=== PATIENT | female | born 1995 | race Caucasian/White ===

== ENCOUNTER → 2020-04-08 | Outpatient (CLI) | payer OTHER ==
--- NOTE | 2020-04-09 07:26 | REP ---
There are no prior examinations for comparison. REASON FOR EXAM: Size/date discrepancy. When examinations are compared, images are necessary to review. Limited OB ultrasound was ordered and performed for size/date discrepancy. Multiple ultrasonographic images of the gravid uterus show a single living intrauterine gestation in the cephalic presentation. Doppler interrogation of the heart shows a heart rate of 128 beats per minute. The placenta is posterior fundal and not low lying. The subjective amniotic fluid volume is within normal limits. The calculated amniotic fluid index is 6.6 with an expected range 7.3 to 23.9. The cervix measures 2.5 cm in length and is closed. Evaluation of the maternal adnexal spaces showed no gross abnormalities. Doppler interrogation of the umbilica artery shows an A/B ratio of 2.9. This is slightly above the upper limit of normal for this stage of , which is 2.6. biophysical profile score is 2 for breathing, 2 for movement, 2 for tone, and 2 for amniotic fluid volume, giving a sum total of 8 out of 8. BPD 9.3 cm = 37 weeks 4 days HC 32.5 cm = 36 weeks 5 days AC 32.6 cm = 36 weeks 4 days FL 7.2 cm = 36 weeks 6 days The estimated weight is 3027 grams, which is at the 38th percentile for a 38-week 0-day gestational age. IMPRESSION: Limited OB ultrasound, as described above, showing a single living intrauterine gestation 36 weeks 6 days via composite criteria with an estimated date of delivery of 04/30/2020 by today's exam. Electronically Signed by Varinder Velasquez DO 04/09/2020 09:11 A
== END ==
LOC: M RAD 14:14
PROVIDERS: ATTEND Obstetrics & Gynecology
DX: O26.849 Uterine size-date discrepancy, unspecified trimester (principal)

== ENCOUNTER → 2020-04-13 | Outpatient (CLI) | payer OTHER ==
--- NOTE | 2020-04-13 16:31 | REP ---
Clinical: well-being Comparison: 04/08/2020 . Findings: Examination demonstrates a single live intrauterine in cephalic presentation. motion is identified by technologist. Placenta is noted posterior and grade I I without evidence for placenta previa or abruption. Amniotic fluid volume is normal. Cervix measures 3.8 cm in length and appears closed. No evidence for nuchal cord. Gestational age by LMP 38 weeks 5 days with AJ 04/22/2020 . FHR equals 156 beats per minute. Biophysical profile score: 8/8 Amniotic fluid index: 10.2 cm Impression: Single live advanced gestation in cephalic presentation. Biophysical profile score and amniotic fluid volume are normal. Electronically Signed by Jon Gee MD 04/13/2020 04:24 P
== END ==
LOC: M PLAIMG 15:06
PROVIDERS: ATTEND Obstetrics & Gynecology
DX: Z34.80 Encounter for supervision of other normal pregnancy, unspecified trimester (principal); Z3A.38 38 weeks gestation of pregnancy

== ENCOUNTER 2020-04-16 19:00 | Inpatient (IN) | payer OTHER ==
[~2020-04-16 19:00] MED LIST: MORPHINE 10 MG/ML 1ML VIAL (J2270) ONE; PROMETHAZINE INJ 25 MG/ML VIAL (J2550) ONE
[2020-04-16] MEDS ORDERED: FENTANYL 2MCG/ML ROPIVACAINE 0.2% IN 0.9% NACL 100ML IVBAG ONE (19:52)
[2020-04-17] MEDS ORDERED: IBUPROFEN 800 MG TAB ONE ×2 (04:08→18:07)
[2020-04-17] MEDS ORDERED: DIBUCAINE 1% OINTMENT 30GM ONE (07:53)
[2020-04-17] MEDS ORDERED: ANUSOL HC CREAM 30GM ONE (07:53)
[2020-04-17] MEDS ORDERED: PRENATAL VITAMINS CHEWABLE TABLET ONE (09:34)
[2020-04-17] MEDS ORDERED: OXYTOCIN 30 UNITS IN 0.9% NaCl 500ML IV BAG (J2590) ONE (12:58)
[2020-04-17] MEDS ORDERED: LIDOCAINE 1% SDV 5ML VIAL As Ordered ONE (19:29)
[2020-04-17] MEDS ORDERED: ACETAMINOPHEN SUSP DYE FREE 160 MG/5 ML UDC As Ordered ONE (19:30)
--- NOTE | 2020-06-09 12:16 | IPN ---
DATE: 04/17/2020 This patient and requested circumcision of their male . After discussing risks and benefits of circumcision, the medical and nonmedical indications, the penile block and aftercare, expressed understanding of penile block, aftercare, and bleeding, signed the consent form. All questions were answered. A 20-minute discussion. We await the clearance by the dispatcher bus and trolley. [facility]
== END 2020-04-18 11:00 | disposition home or self-care (01) | DRG 807 ==
LOC: M LDI 19:00
PROVIDERS: ADMIT Obstetrics & Gynecology; ATTEND Obstetrics & Gynecology
PROC: 10E0XZZ Delivery of Products of Conception, External Approach (ICD-10-PCS; principal; 2020-04-17)
PROC: 0KQM0ZZ Repair Perineum Muscle, Open Approach (ICD-10-PCS; 2020-04-17)
DX: O69.2XX0 Labor and delivery complicated by other cord entanglement, with compression, not applicable or unspecified (principal); Z37.0 Single live birth; Z3A.39 39 weeks gestation of pregnancy; O70.1 Second degree perineal laceration during delivery

== ENCOUNTER → 2020-04-16 | Outpatient (CLI) | payer OTHER ==
[2020-06-01 14:41] LABS: HEMATOCRIT 38.8 % (36.0-47.0); HEMOGLOBIN 13.2 g/dl (12.0-15.5); MEAN CORPUSCULAR VOLUME 91.1 fl (80.0-96.0); PLATELET COUNT, AUTOMATED 175 10^3/uL (150-450); RED BLOOD COUNT 4.26 10^6/uL (4.00-5.40); WHITE BLOOD COUNT 11.6 10^3/uL (4.0-10.0)
== END ==
LOC: M LDO 04:39
PROVIDERS: ATTEND Obstetrics & Gynecology
DX: O26.893 Other specified pregnancy related conditions, third trimester (principal); Z3A.39 39 weeks gestation of pregnancy